=== PATIENT | female | born 1965 | race Caucasian/White ===

== ENCOUNTER 2018-10-11 07:36 | Emergency (ER) | payer MEDICAID, OTHER ==
--- NOTE | 2018-10-11 08:40 | ED Physician Chart ---
ED Chief Complaint/HPI - Patient Information Date Seen:: 10/11/18 Time Seen:: 08:35 Chief Complaint:: weakness confusion History of Present Illness:: 52 yr old female with increasing confusion weakness for 3 yrs according to the daughter and no fever cough no reported trauma no nvdc Allergies:: Allergies Allergy/AdvReac Type Severity Reaction Status Date / Time acetaminophen [From Vicodin] AdvReac Verified 10/11/18 08:01 codeine AdvReac Verified 10/11/18 08:01 hydrocodone [From Vicodin] AdvReac Verified 10/11/18 08:01 Vitals:: Vital Signs - 8 hr 10/11/18 08:02 Temp 98.2 F HR 89 RR 18 BP 137/90 O2 Sat % 96 ED Review of Systems - Review of Systems General/Constitutional: No fever Skin: No skin lesions Eyes: No loss of vision ENT: No earache Neck: Neck pain, Other (posterior neck discomfort all old) Cardio Vascular: No chest pain Pulmonary: No SOB GI: No nausea, No vomiting G/U: No dysuria Musculoskeletal: Bone or joint pain Endocrine: No polyuria Neurological: No syncope, Weakness, Paresthesia (paresthesia lt side of face) Family Medical History - Family Member Mother History Unknown: Yes ED Septic Shock - . Is Septic Shock (SBP<90, OR Lactate>4 mmol\L) present?: No - <6hrs of presentation: Vital Signs: Vital Signs - 8 hr 10/11/18 08:02 Temp 98.2 F HR 89 RR 18 BP 137/90 O2 Sat % 96 ED Reassessment (Disposition) - Reassessment Reassessment:: confusion weakness - Diagnosis Diagnosis:: as above unclear etiology pt had full w/u with neurology consult - Patient Disposition Discharge/Transfer:: Home Condition at Disposition:: Stable
[2018-10-11] MEDS ORDERED: Sodium Chloride 0.9% 1,000 ML IV ONE (08:41)
[2018-10-11 08:43] LABS: URINE SOURCE MIDSTREAM
[2018-10-11 08:43] LABS: RED BLOOD COUNT 4.76 Mil/cmm (3.80-5.10); WHITE BLOOD COUNT 4.9 Th/cmm (4.8-10.8)
[2018-10-11 08:44] LABS: % EOSINOPHILS 2.8 % (0.0-5.0); % LYMPHOCYTES 26.8 % (20.0-50.0); % MONOCYTES 7.7 % (2.0-10.0); % NEUTROPHILS 62.7 % (40.0-80.0); EOSINOPHILE ABSOLUTE 0.1 Th/cmm (0.1-0.4); HEMATOCRIT 42.7 % (41.0-60); HEMOGLOBIN 14.4 gm/dL (12-16); LYMPHOCYTE ABSOLUTE 1.3 Th/cmm (1.5-3.0); MEAN CELL VOLUME 89.6 fl (81-100); MEAN CORPUSCULAR HEMOGLOBIN 30.3 pg (27.0-31.0); MEAN CORPUSCULAR HGB CONC 33.8 pg (28.0-36.0); MEAN PLATELET VOLUME 6.6 fl; MONOCYTE ABSOLUTE 0.4 Th/cmm (0.3-1.0); NEUTROPHILE ABSOLUTE 3.1 Th/cmm (1.8-8.0); PLATELET COUNT 281 Th/cmm (150-400); RED CELL DISTRIBUTION WIDTH 13.5 % (11.5-20.0)
[2018-10-11 08:45] LABS: URINE BILIRUBIN NEGATIVE (NEGATIVE); URINE BLOOD NEGATIVE (NEGATIVE); URINE GLUCOSE (UA) 250 mg/dL (NEGATIVE); URINE KETONE NEGATIVE (NEGATIVE); URINE LEUKOCYTE ESTERASE TRACE (NEGATIVE); URINE MICROSCOPIC INDICATED? YES; URINE NITRATE NEGATIVE (NEGATIVE); URINE PH 6.5 (4.6 - 8.0); URINE PROTEIN NEGATIVE (NEGATIVE); URINE UROBILINOGEN 0.2 E.U./dL (0.2 - 1.0)
[2018-10-11 08:49] LABS: URINE CLARITY CLEAR (CLEAR); URINE COLOR YELLOW
[2018-10-11 08:56] LABS: URINE BACTERIA NONE SEEN /hpf (NONE SEEN); URINE EPITHELIAL CELLS FEW /lpf (FEW); URINE RBC 0-2 /hpf (0-5)
[2018-10-11 08:58] LABS: ALB/GLOB RATIO 1.7 (1.0-1.8); ALBUMIN 4.5 gm/dL (3.7-5.3); ALKALINE PHOSPHATASE 116 U/L (34-104); ANION GAP 10.7 (7.0-16.0); BILIRUBIN,TOTAL 0.4 mg/dL (0.3-1.0); BUN - UREA NITROGEN 11 mg/dL (7-25); CALCIUM SERUM 9.4 mg/dL (8.6-10.3); CARBON DIOXIDE 27.7 mEq/L (21.0-31.0); CHLORIDE 103 mEq/L (98-107); CREATININE - SERUM 0.6 mg/dL (0.6-1.2); GFR AFRICAN-AMERICAN > 60.0 ml/min (>90); GFR NON AFRICAN-AMERICAN > 60.0 ml/min; GLUCOSE 232 mg/dL (70-105); POTASSIUM SERUM 4.4 mEq/L (3.5-5.1); SGOT 20 U/L (13-39); SGPT/ALT 31 U/L (7-52); SODIUM SERUM 137 mEq/L (136-145); TOTAL PROTEIN,SERUM 7.1 gm/dL (6.0-8.3)
--- NOTE | 2018-10-11 10:37 | Diagnostic Imaging Report ---
Head CT without intravenous contrast Indication: Headache Comparison: None Technique: Axial images were obtained from the vertex to the skull base without IV contrast. Coronal reconstructions were made. Total DLP: 744, CTDI37 FINDINGS: Images of the brain obtained without contrast demonstrate no acute hemorrhage. No mass lesions identified. The ventricles and basal cisterns are patent. The león-white matter differentiation is preserved. There is no mass effect or midline shift. Somewhat inconspicuous pituitary gland is noted with mildly prominent sella turcica. No skull fractures identified. No soft tissue swelling. The paranasal sinuses are clear. IMPRESSION: No acute intracranial abnormality Somewhat inconspicuous pituitary gland with mildly prominent sella turcica.. The significance of this finding should be correlated clinically.
--- NOTE | 2018-10-11 10:39 | Diagnostic Imaging Report ---
CT cervical spine without IV contrast HISTORY: Pain COMPARISON: None Technique: Axial images were obtained from the skull base to the upper thoracic spine without IV contrast. Multiplanar reconstructions were made. Total DLP: 381, CTDI23 FINDINGS: Images of the spine cervical spine obtained without contrast demonstrate no evidence of a fracture or subluxation. The disc spaces are preserved. Mild degenerative changes are noted. No prevertebral soft tissue swelling. No focal soft tissue abnormalities. The lung apices are clear. IMPRESSION: No evidence of a fracture or subluxation. Mild degenerative changes.
--- NOTE | 2018-10-11 10:43 | Diagnostic Imaging Report ---
CT thoracic spine without IV contrast HISTORY: Back pain COMPARISON: Cervical and lumbar spine CT the same day Technique: Axial images were obtained from the lower cervical spine to the upper lumbar without IV contrast. Reconstructions were made. total DLP: 776, CTDI32 Findings: Images of the thoracic spine obtained without contrast demonstrate no evidence of acute fracture or subluxation. Alignment is anatomic. Mild to moderate generalized degenerative changes are seen with anterior marginal ossific spurs. There may be osteopenia. The lung nicholson demonstrate hypodensity changes. IMPRESSION: No evidence of acute fracture or subluxation. Mild to moderate degenerative changes.
--- NOTE | 2018-10-11 10:47 | Diagnostic Imaging Report ---
CT lumbar spine without IV contrast HISTORY: Back pain COMPARISON: Thoracic spine CT the same day Technique: Axial images were obtained from the lower thoracic spine to the upper sacrum without IV contrast. Reconstructions were made. total DLP: 776, CTDI32 Findings: Images of the lumbar spine obtained contrast demonstrate no evidence of an acute fracture or subluxation. Mild degenerative changes are noted including 3 mm broad-based posterior disc bulge at L4/L5 and 5 mm posterior disc protrusion at L5/S1. Associated mild spinal canal narrowing is noted at both levels. Mild bilateral neural foraminal narrowing is also noted at both levels. The retroperitoneum demonstrates atherosclerotic vascular disease. Osteopenia suspected. Degenerative changes of the SI joints are noted. IMPRESSION: No evidence of acute fracture or subluxation. Mild to moderate changes greatest along the lower lumbar spine as detailed above Osteopenia suspected Atherosclerotic vascular disease.
== END 2018-10-11 10:58 | disposition home or self-care (01) ==
LOC: ER 07:36
DX: R41.0 Disorientation, unspecified (principal); R53.1 Weakness; M54.2 Cervicalgia; R20.2 Paresthesia of skin; Z88.5 Allergy status to narcotic agent; Z88.6 Allergy status to analgesic agent
CPT/HCPCS: 36415-UA; 70450-TC; 72125-TC; 72128-TC; 72131-TC; 80053-TC; 81001-TC; 81025-TC; 83036-90; 85025-TC; J7030